=== PATIENT | male | born 1985 | race Caucasian/White ===

== ENCOUNTER 2017-03-16 18:29 | Emergency (ER) | payer OTHER ==
[2017-03-16] MEDS ORDERED: Acetaminophen/oxyCODONE 325-5 MG Tab PO ONE (20:44)
[2017-03-17 02:40] VITALS: BP 110/71
--- NOTE | 2017-03-18 14:35 | CR ---
INDICATION: Back pain. LUMBOSACRAL SPINE: Four views of the lumbosacral spine were obtained and revealed minimal decrease in disk space at L4-5, raising question of a minimal degree of disk disease at that level and should be correlated clinically. Vertebral body and disk heights were otherwise maintained. The pedicles appear to be intact. Bone density appeared to be normal. Sacroiliac joints appear to be intact. No significant degenerative change is seen. IMPRESSION: Question minimal decrease in disk space at L4-5. This could be a developmental variation or possibly evidence for minimal disk disease at this level. MTDD
--- NOTE | 2017-03-19 11:25 | ER ---
DATE SEEN: 03/16/2017 The patient was seen by my colleague earlier in the evening, Dr. Ibarra. Dr. Ibarra noted that the patient has low back discomfort. I did follow up and interview with the patient. The patient's pain has been present for several days. Saw a chiropractor earlier this week on 03/11/2017. He has low back pain on and off, but more recently is worse. He has not used Toradol, but he tried Vicodin that did not help at home. PHYSICAL EXAMINATION: GENERAL: The patient is a smoker. HEENT: PERRLA intact. Pharynx without abnormality. The patient has marked pain in his neck and his back reluctant to move. He groans when he moves. HEENT without abnormality. Pupils equal, round, and reactive to light. No thyromegaly. No cervical adenopathy. LUNGS: Clear to auscultation without rales, rhonchi, or wheezes. HEART: S1, S2. No irregular rate and rhythm. ABDOMEN: Soft. No guarding. No abdominal discomfort. No CVA percussion tenderness. MUSCULOSKELETAL: He has extensive pain L4-5, S1. Mild paraspinal muscle spasm. Has mild interspinous ligamentous discomfort, L4-5, L5-S1. Straight leg raise is positive at 80 degrees bilaterally. He groans loudly. He has lot of pain. Internal and external rotation of hip is without abnormality. No dysesthesia in lower extremities. No sensory changes in lower extremities. ASSESSMENT: 1. Low back pain. It is possible he has herniated disk. Dr. Ibarra ordered lumbar spine x-rays, they look very normal, except for the L5 has trace spurring and decrease narrowing of the disk space between L5 and S1. 2. Lumbar pain. The patient is not a drug-seeker. 3. It is very possible he has a herniated disk and, at present, does not have radicular pain. I discussed getting an MRI with him and the rationale is not to get an MRI initially because it takes a while before the strain of the pain settles down, and his insurance might simply not pay for it until he has had adequate trial of rehab. Gradually progressively increase his activity as tolerated. He has 8 Percocet dispensed for him. Robaxin 60 tablets 1 q.6 h. p.o. q.i.d. p.r.n. spasm. Follow up with his doctor in a week. The patient was seen at 1855 hours. /[id number] CAREY/MARQUITA NEFF
== END 2017-03-16 20:55 | disposition home or self-care (01) ==
LOC: FB.ED 18:29
DX: M54.5 Low back pain (principal)
CPT/HCPCS: 36415; 72100; 80053; 81001; 85025; 99283; A9270

== ENCOUNTER 2018-10-05 18:06 | Emergency (ER) | payer OTHER ==
[2018-10-05] MEDS ORDERED: Ibuprofen 600 MG Tab PO ONE (18:25)
[2018-10-05] MEDS ORDERED: Albuterol/Ipratropium 3.0-0.5 MG/3 ML Neb Soln NEB ONE (18:25)
--- NOTE | 2018-10-05 18:27 | EDM.PDOC ---
ED HPI GENERAL MEDICAL PROBLEM - General Chief Complaint: General Stated Complaint: LIGHT-HEADED, NAUSEOUS, SOB Time Seen by Provider: 10/05/18 18:06 Source of Information: Reports: Patient History Limitations: Reports: No Limitations - History of Present Illness INITIAL COMMENTS - FREE TEXT/NARRATIVE: 33 y.o.w.m came to the ed due to sudden onset of prod. cough, dizziness-smoker- and cp with deep inspiration, running nose, cold symptoms. CP with deep inspiration, no Trauma, no diaphoresis. no other acute medical issues. BP 127/ 75 cRR 17 Pulse ox 96% on RA Pulse 108 Temp 37.1 Onset Date: 10/05/18 Onset Time: 14:00 Duration: Hour(s):, Intermittent Location: Reports: Chest, Generalized Quality: Reports: Ache, Burning, Dull Severity: Moderate Improves with: Reports: Rest Worsens with: Reports: Movement Context: Reports: Sick Contact Associated Symptoms: Reports: Chest Pain, Cough, Shortness of Breath - Related Data Allergies Allergy/AdvReac Type Severity Reaction Status Date / Time acetaminophen Allergy Fever Verified 10/05/18 18:53 [From Darvocet-N 100] amoxicillin [Amoxicillin] Allergy Rash Verified 10/05/18 18:53 morphine Allergy Fever Verified 10/05/18 18:53 oxycodone Allergy Vomiting Verified 10/05/18 18:53 Penicillins Allergy Rash Verified 10/05/18 18:53 propoxyphene napsylate Allergy Fever Verified 10/05/18 18:53 [From Darvocet-N 100] Home Meds: Home Meds Arthritis Pill 1 tab PO DAILY 10/05/18 [History] Ciprofloxacin HCl [Cipro] 500 mg PO BID #20 tablet 10/05/18 [Rx] Meclizine [Antivert] 25 mg PO Q6H PRN #20 tab 10/05/18 [Rx] Past Medical History - Past Health History Medical/Surgical History: Denies Medical/Surgical History Neurological History: Reports: Migraines - Past Surgical History GI Surgical History: Reports: Hernia, Abdominal, Hernia, Inguinal ED ROS GENERAL - Review of Systems Review Of Systems: See Below Constitutional: Reports: No Symptoms HEENT: Reports: No Symptoms Respiratory: Reports: Pleuritic Chest Pain, Cough, Sputum Cardiovascular: Reports: No Symptoms Endocrine: Reports: No Symptoms GI/Abdominal: Reports: No Symptoms : Reports: No Symptoms Musculoskeletal: Reports: No Symptoms Skin: Reports: No Symptoms Neurological: Reports: No Symptoms Psychiatric: Reports: No Symptoms Hematologic/Lymphatic: Reports: No Symptoms Immunologic: Reports: No Symptoms ED EXAM, GENERAL - Physical Exam Exam: See Below Exam Limited By: No Limitations General Appearance: Alert, WD/WN, Mild Distress Eye Exam: Bilateral Eye: Nystagmus (bilat) Ears: Normal External Exam Ear Exam: Bilateral Ear: Auricle Normal Nose: Normal Inspection, Normal Mucosa, No Blood, Nasal Drainage Throat/Mouth: Normal Inspection, Normal Lips, Normal Voice, No Airway Compromise Head: Atraumatic, Normocephalic Neck: Normal Inspection, Supple, Non-Tender, Full Range of Motion Respiratory/Chest: No Respiratory Distress, Chest Non-Tender, Rhonchi Cardiovascular: Normal Peripheral Pulses, Regular Rate, Rhythm, No Edema, No JVD , No Murmur Peripheral Pulses: 2+: Brachial (L) GI/Abdominal: Normal Bowel Sounds, Soft, Non-Tender, No Organomegaly, No Mass, Pelvis Stable (Male) Exam: Deferred Rectal (Males) Exam: Deferred Back Exam: Normal Inspection, Full Range of Motion Extremities: Normal Inspection, Normal Range of Motion, Non-Tender, No Pedal Edema Neurological: Alert, Oriented, CN II-XII Intact, Normal Cognition, Normal Gait Psychiatric: Normal Affect, Normal Mood Skin Exam: Warm, Dry, Intact, Normal Color, No Rash Lymphatic: No Adenopathy Course - Vital Signs Text/Narrative:: 33 y.o.w.m came to the ed due to sudden onset of prod. [id number] and cp with deep inspiration, running nose, cold symptoms. CP with deep inspiration, no Trauma, no diaphoresis. no other acute medical issues. BP 127/ 75 cRR 17 Pulse ox 96% on RA Pulse 108 Temp 37.1 PE: WNWD W M with flu like symptoms with bilat nystagmus Imaging: CXR: Bronchitis, official report is pending Labs: Influenza screen: Neg Impression: Vertigo, acute Bronchitis, Pleurisy, Viral syndrome Tx: Duoneb, Antivert, Motrin, cipro Reexam: Pt feels better, refused sick leave Plan: D/C with instructions Last Recorded V/S: Last Vital Signs Temp 37.1 C 10/05/18 18:20 Pulse Resp 17 10/05/18 18:20 BP 125/72 10/05/18 19:05 Pulse Ox 95 10/05/18 19:05 - Orders/Labs/Meds Orders: Active Orders 24 hr Category Date Time Status RT Aerosol Therapy [RC] ASDIRECTED Care 10/05/18 18:25 Active Chest 2V [CR] Stat Exams 10/05/18 18:25 Taken Meds: Medications Discontinued Medications Generic Name Dose Route Start Last Admin Trade Name Freq PRN Reason Stop Dose Admin Albuterol/Ipratropium 3 ml 10/05/18 18:25 10/05/18 18:37 Duoneb 3.0-0.5 Mg/3 Ml NEB 10/05/18 18:26 3 ml ONETIME ONE Administration Ciprofloxacin 500 mg 10/05/18 19:05 10/05/18 19:11 Ciprofloxacin Hcl PO 10/05/18 19:06 500 mg ONETIME ONE Administration Ibuprofen 600 mg 10/05/18 18:25 10/05/18 18:38 Motrin PO 10/05/18 18:26 600 mg ONETIME ONE Administration Meclizine HCl 25 mg 10/05/18 19:05 10/05/18 19:11 Antivert PO 10/05/18 19:06 25 mg ONETIME ONE Administration Departure - Departure Time of Disposition: 19:08 Disposition: Home, Self-Care 01 Condition: Good Clinical Impression: Acute bronchitis, Vertigo, Chest wall discomfort - Discharge Information Prescriptions: Ciprofloxacin HCl [Cipro] 500 mg PO BID #20 tablet Meclizine [Antivert] 25 mg PO Q6H PRN #20 tab PRN Reason: Dizziness Referrals: PCP,Not In Area [Primary Care Provider] - Forms: ED Department Discharge Additional Instructions: Please take cipro and Antivert as recommended, please take Motrin/Ibuprofen for pain, please f/u, come back if your symptoms get worse acutely - My Orders Last 24 Hours: My Active Orders 10/05/18 18:25 RT Aerosol Therapy [RC] ASDIRECTED Chest 2V [CR] Stat - Assessment/Plan Last 24 Hours: My Active Orders 10/05/18 18:25 RT Aerosol Therapy [RC] ASDIRECTED Chest 2V [CR] Stat
[2018-10-05] MEDS ORDERED: Ciprofloxacin 500 MG Tab PO ONE (19:05)
[2018-10-05] MEDS ORDERED: Meclizine 25 MG Tab PO ONE (19:05)
[2018-10-05 19:52] VITALS: BP 125/72
--- NOTE | 2018-10-06 11:26 | CR ---
INDICATION: Cough, shortness of breath. CHEST: PA and lateral views of the chest revealed the heart, mediastinum, and bony thorax to be unremarkable. Somewhat heavy markings are suggested in the lower lung bolden, especially on the right, without a consolidating pneumonia or effusion identified. Mild bronchial wall cuffing is noted, which may be on the basis of active peribronchial disease and/or fibrosis - correlate clinically. IMPRESSION: Somewhat heavy markings in the lower lung bolden with bronchial wall cuffing, may represent active peribronchial disease - correlate clinically. Fibrosis could also be present. MTDD
== END 2018-10-05 19:18 | disposition home or self-care (01) ==
LOC: FB.ED 18:06
DX: J20.9 Acute bronchitis, unspecified (principal); R07.89 Other chest pain; B34.9 Viral infection, unspecified; R42 Dizziness and giddiness; Z88.8 Allergy status to other drugs, medicaments and biological substances; Z88.5 Allergy status to narcotic agent; Z79.899 Other long term (current) drug therapy
CPT/HCPCS: 71046; 87804; 94640; 99283; A9270; 99284; J7620-GY

== ENCOUNTER 2022-09-12 13:35 | Emergency (ER) | payer OTHER ==
[2022-09-12 14:11] VITALS: BP 133/93; PULSE 92
[2022-09-12 14:26] LABS: ESTIMATED GFR 98 mL/min (>60)
== END 2022-09-12 15:16 | disposition home or self-care (01) ==
LOC: FB.ED 13:35
DX: S16.1XXA Strain of muscle, fascia and tendon at neck level, initial encounter (principal); S40.012A Contusion of left shoulder, initial encounter; F17.210 Nicotine dependence, cigarettes, uncomplicated; Z88.0 Allergy status to penicillin; Z88.5 Allergy status to narcotic agent; Z88.8 Allergy status to other drugs, medicaments and biological substances; V49.40XA Driver injured in collision with unspecified motor vehicles in traffic accident, initial encounter; Y92.410 Unspecified street and highway as the place of occurrence of the external cause
CPT/HCPCS: 36415; 72040; 73030-LT; 80053; 85025; 85610; 85730; 99283